=== PATIENT | female | born 1955 | race Caucasian/White ===

== ENCOUNTER 2019-02-09 19:11 | Observation (INO) ==
--- NOTE | 2019-02-09 19:20 | Emergency Department Note ---
Disposition Clinical Impression: Compression fracture of T10 vertebra, Intractable back pain Disposition: Admitted As Inpatient Condition: Good Time of Disposition: 00:00 Fall HPI - General Chief Complaint: ED Fall Stated Complaint: back injury Time Seen by Provider: 02/09/19 19:19 Source: patient Mode of arrival: ambulatory Limitations: no limitations Nursing Notes Reviewed: Yes Vital Signs Reviewed: Yes - History of Present Illness HPI Narrative: Patient is a 64 yo female with past medical history of chronic low back pain, gastric bypass, chronic nausea that she take Zofran for. She presents today due to a fall and thoracolumbar pain. Patient states that she take Zofran for c hronic nausea, she says that every time she takes his medication she gets lightheaded and dizzy. She states that she took this medication today around 1 PM. She felt dizzy when she is standing and fell flat on her back. She did hit her head but did not lose consciousness. She denies any neck pain. She admits to tobacco lumbar midline pain. Also admits to some mild epigastric pain. Denies any extremity injury. Denies any chest pain, shortness of breath. She does admit to dry heaving but states that this is chronic secondary to her gastric bypass. Denies any numbness, tingling, weakness. Is not on any blood thinners. - Related Data Home Medications Medication Instructions Recorded Confirmed Citalopram Hydrobromide 40 mg PO DAILY 11/10/18 02/10/19 [Citalopram HBr] Ergocalciferol (VITAMIN D2) 50,000 unit PO MO 11/10/18 02/10/19 [Vitamin D2] Esomeprazole Magnesium [Nexium] 40 mg PO DAILY 11/10/18 02/10/19 RX: Folic Acid 1 mg PO DAILY 11/10/18 02/10/19 RX: Ondansetron HCl 4 mg PO Q8H PRN 11/10/18 02/10/19 Acetaminophen [Tylenol] 1,000 mg PO HS PRN 02/10/19 02/10/19 DiphenhydraMINE [Benadryl] 25 mg PO HS 02/10/19 02/10/19 Previous Rx's Medication Instructions Recorded Lidocaine Patch [Lidoderm 5% patch] 1 each TP DAILY PRN #10 adh..patch 09/05/18 Allergies Allergy/AdvReac Type Severity Reaction Status Date / Time ibuprofen Allergy See Verified 11/10/18 08:26 Comments shellfish derived Allergy Rash Verified 11/10/18 08:26 All systems ED: reviewed and negative except as stated. Constitutional: Denies: fever Cardiovascular: Denies: chest pain Respiratory: Denies: dyspnea Gastrointestinal: Reports: abdominal pain, nausea. Denies: vomiting, diarrhea, constipation, melena, hematochezia Genitourinary: Denies: urgency, dysuria Musculoskeletal: Reports: back pain. Denies: neck pain Integumentary: Denies: rash Neurological: Denies: headache, weakness, numbness, paresthesias Fall PMH - Past Medical History Medical history: Reports: GERD, kidney stones Surgical history: Reports: non-contributory Psychiatric history: Reports: depression - Social History Smoking Status: Current every day smoker Alcohol use: Reports: occasionally Drug use: Reports: none Physical Exam - General Limitations: no limitations General appearance: alert, in no apparent distress - Head Head exam: atraumatic, normocephalic, normal inspection - Eye Eye exam: Present: normal appearance, PERRL, EOMI - ENT ENT exam: normal exam, normal oropharynx, mucous membranes moist - Neck Neck exam: Present: normal inspection, full ROM, trachea midline. Absent: tenderness (no midline cervical spine tenderness ) - Chest Chest inspection: Present: normal inspection, symmetric chest wall rise. Absent: tenderness - Respiratory Respiratory exam: Present: normal lung sounds bilaterally - Cardiovascular Cardiovascular exam: Present: regular rate, normal rhythm, normal heart sounds - Abdominal Exam Abdominal exam: Present: soft, tenderness (epigastric - moderate and radiates subjective pain to back). Absent: distention, rigidity - Extremities Exam Extremities exam: Present: normal inspection, full ROM. Absent: tenderness, pedal edema - Back Exam Back exam: Present: vertebral tenderness (T10-L2 midline tenderness with no obvious step-offs or deformities.). Absent: paraspinal tenderness - Neurological Exam Neurological exam: Present: alert, oriented X3, CN II-XII intact. Absent: motor sensory deficit - Expanded Neurological Exam Patient oriented to: Present: person, place, time Speech: Present: fluid speech Cranial nerves: EOM function (II, III, IV, ): Normal, facial sensation (V): Normal, facial palsy (VII): Normal, spinal accessory function (XI): Normal, tongue deviation (XII): Normal Motor strength - LUE: 5/5 Motor strength - RUE: 5/5 Motor strength - LLE: 5/5 Motor strength - RLE: 5/5 Sensory exam upper extremity: light touch: Normal Sensory exam lower extremity: light touch: Normal Coma Scale Eye Opening: Spontaneous Coma Scale Motor Response: Obeys Commands Coma Scale Verbal Response: Oriented Coma Scale Total: 15 - Psychiatric Psychiatric exam: Present: normal affect, normal mood - Skin Skin exam: Present: warm, dry, intact, normal color Course Course Narrative: Systolic blood pressure was in the 90s. 1 L normal saline bolus given. Otherwise, the rest of the vitals within normal limits. Physical exam showed midline thoracolumbar tenderness. Otherwise, no cervical spine tenderness, no focal neurologic deficits. No extremity injuries. Abdominal exam showed epigastric tenderness, moderate in nature. No bruising. No CVA tenderness. 23:19 CT thoracic spine shows mild T10 compression fracture. There is also questionable finding of C7 abnormality however on dedicated cervical spine CT there is no acute abdomen on the scene. Head CT negative. Patient has required multiple doses of pain medication while here in the ED. We have transitioned to Dilaudid at this time. We will admit the patient for intractable back pain, T10 compression fracture, age indeterminate T3 compression fracture, consult has be en placed to orthopedics/spine for further evaluation. Abdomen/Pelvis CTA 02/09/19 19:28 IMPRESSION: 1. Mild T10 compression fracture is new compared to 09/05/2018. Thoracic spine findings have been dictated separately. 2. No evidence for visceral injury. D/ / Lance Linares MD / Lance Linraes MD Interpreting Provider: Lance Linares MD Cervical Spine CT 02/09/19 19:28 IMPRESSION: No acute abnormality of the cervical spine. Slight reversal of the normal cervical lordosis may be secondary to positioning or muscle spasm. D/ / Landen Lane MD / Landen Lane MD Interpreting Provider: Landen Lane MD Head CT 02/09/19 19:28 IMPRESSION: No acute intracranial abnormality. D/ / Jacek Mosher MD / Jacek Mosher MD Interpreting Provider: Jacek Mosher MD Lumbar Spine CT 02/09/19 19:28 IMPRESSION: Acute compression fracture involving the superior endplate of T10. Questionable very subtle compression deformities of C7 and T3, age-indeterminate. D/ / Shiraz Ibrahim MD / Shiraz Ibrahim MD Interpreting Provider: Shiraz Ibrahim MD Thoracic Spine CT 02/09/19 19:28 IMPRESSION: Acute compression fracture involving the superior endplate of T10. Questionable very subtle compression deformities of C7 and T3, age-indeterminate. D/ / Shiraz Ibrahim MD / Shiraz Ibrahim MD Interpreting Provider: Shiraz Ibrahim MD Chest X-Ray 02/09/19 19:31 IMPRESSION: No acute cardiopulmonary disease. D/ / Landen Lane MD / Landen Lane MD Interpreting Provider: Landen Lane MD Vital Signs Temperature 97.5 F L 02/09/19 19:13 Pulse Rate 92 02/09/19 19:13 Respiratory Rate 18 02/09/19 19:13 Blood Pressure 94/69 02/09/19 19:13 O2 Sat by Pulse Oximetry 96 02/09/19 19:13 Temperature 97.5 F L 02/09/19 19:13 Pulse Rate 80 02/09/19 23:20 Respiratory Rate 16 02/09/19 23:20 Blood Pressure 165/101 02/09/19 23:20 O2 Sat by Pulse Oximetry 100 02/09/19 23:20 Oxygen Delivery Oxygen Delivery Room Air Fall - [facility] Narrative Medical decision making narrative: Systolic blood pressure was in the 90s. 1 L normal saline bolus given. Otherwise, the rest of the vitals within normal limits. Physical exam showed midline thoracolumbar tenderness. Otherwise, no cervical spine tenderness, no focal neurologic deficits. No extremity injuries. Abdominal exam showed epigastric tenderness, moderate in nature. No bruising. No CVA tenderness. 23:19 CT thoracic spine shows mild T10 compression fracture. There is also questionable finding of C7 abnormality however on dedicated cervical spine CT there is no acute abdomen on the scene. Head CT negative. Patient has required multiple doses of pain medication while here in the ED. We have transitioned to Dilaudid at this time. We will admit the patient for intractable back pain, T10 compression fracture, age indeterminate T3 compression fracture, consult has been placed to orthopedics/spine for further evaluation. - Medical Records Medical records reviewed: Yes I reviewed the patient's medical records. - Lab Data Lab results reviewed: Yes I reviewed the patient's lab results. Result diagrams: 02/09/19 20:49 02/09/19 20:49 Lab Results 02/09/19 02/09/19 Range/Units 20:49 20:49 WBC 8.0 (4.3-11.1) K/mcL RBC 3.15 L (3.82-4.97) M/mcL Hgb 10.9 L (11.5-15.4) g/dL Hct 31.7 L (35.3-44.9) % MCV 100.6 H (83.0-100.0) fL MCH 34.6 H (28.0-33.3) pg MCHC 34.4 (31.6-35.5) g/dL RDW 12.9 (11.5-14.5) % Plt Count 225 (140-400) K/mcL MPV 10.1 (9.4-12.4) fL Immature Gran % 0.5 (0-4) % Seg Neutrophils % 72.4 % Lymphocytes % 17.8 % Monocytes % 8.6 % Eosinophils % 0.3 % Basophils % 0.4 % Neutrophils # 5.8 (1.6-8.9) K/mcL Lymphocytes # 1.4 (0.6-4.6) K/mcL Monocytes # 0.7 (0.0-1.3) K/mcL Eosinophils # 0.0 (0.0-0.6) K/mcL Basophils # 0.0 (0.0-0.2) K/mcL Sodium 133 L (136-145) mEq/L Potassium 5.0 (3.5-5.1) mEq/L Chloride 104 (98-107) mEq/L Carbon Dioxide 22 L (23-29) mEq/L BUN 7 L (8-23) mg/dL Creatinine 0.54 L (0.60-1.20) mg/dL Est GFR ( Amer) > 60 (> 60) Est GFR (Non-Af Amer) > 60 (> 60) BUN/Creatinine Ratio 13 (6-26) Glucose 72 (70-105) mg/dL Calculated Osmolality 273 L (280-300) Calcium 8.0 L (8.6-10.3) mg/dL Total Bilirubin 0.4 (0.3-1.0) mg/dL Direct Bilirubin 0.1 (0.0-0.2) mg/dL Indirect Bilirubin 0.3 (0.0-1.2) mg/dL AST 19 (13-39) Units/L ALT 12 (7-52) Units/L Alkaline Phosphatase 65 (34-104) Units/L Troponin I < 0.03 (< 0.04) ng/mL Serum Total Protein 5.0 L (6.4-8.9) g/dL Albumin 2.8 L (3.5-5.7) g/dL Globulin 2.2 L (2.4-3.5) g/dL Albumin/Globulin Ratio 1.3 (1.1-2.2) Lipase 11 (11-82) Units/L - Radiology Data Radiology results reviewed: Yes I reviewed the patient's radiology results. Abdomen/Pelvis CTA 02/09/19 19:28 IMPRESSION: 1. Mild T10 compression fracture is new compared to 09/05/2018. Thoracic spine findings have been dictated separately. 2. No evidence for visceral injury. D/ / Lance Linares MD / Lance Linares MD Interpreting Provider: Lance Linares MD Cervical Spine CT 02/09/19 19:28 IMPRESSION: No acute abnormality of the cervical spine. Slight reversal of the normal cervical lordosis may be secondary to positioning or muscle spasm. D/ / Landen Lane MD / Landen Lane MD Interpreting Provider: Landen Lane MD Head CT 02/09/19 19:28 IMPRESSION: No acute intracranial abnormality. D/ / Jacek Mosher MD / Jacek Mosher MD Interpreting Provider: Jacek Mosher MD Lumbar Spine CT 02/09/19 19:28 IMPRESSION: Acute compression fracture involving the superior endplate of T10. Questionable very subtle compression deformities of C7 and T3, age-indeterminate. D/ / Shiraz Ibrahim MD / Shiraz Ibrahim MD Interpreting Provider: Shiraz Ibrahim MD Thoracic Spine CT 02/09/19 19:28 IMPRESSION: Acute compression fracture involving the superior endplate of T10. Questionable very subtle compression deformities of C7 and T3, age-indeterminate. D/ / Shiraz Ibrahim MD / Shiraz Ibrahim MD Interpreting Provider: Shiraz Ibrahim MD Chest X-Ray 02/09/19 19:31 IMPRESSION: No acute cardiopulmonary disease. D/ / Landen Lane MD / Landen Lane MD Interpreting Provider: Landen Lane MD [facility] Situation: Demographics, MOA Background: Presenting Complaint, Relevant PMH, Meds, & Allergies Assessment: Vital Signs, Course and respsone to treatment, Exam Concerns, Patient/Family Expectation, Pertinant Lab Results Recommendation: Barrier(s) to disposition, Recommendation based on pending studies, treatments, or consults Bia Report Given to: Dr. Lisandro Amezquita Repor Time: 00:00 Attestation Statement - Attestation Attestation: Resident Attestation: I examined this patient and my medical decision making was reviewed with the Resident Physician. I agree with the documented findings, disposition and treatment plan as described except to the extent set forth below. We independently had [id number] contact with the patient. Patient presents today for evaluation after fall. Patient with significant back pain. Patient preferring to lay flat on my evaluation. Patient has tenderness throughout the mid Saleem lumbar spine. Pain midline as well as paraspinal in nature. Patient neurovascularly intact throughout the upper lower extremities. Patient with no numbness or tingling in the groin. Patient has not had any urinary incontinence. Patient will undergo further trauma evaluation. CT scan concerning for compression fractures. Patient be admitted for pain control as well as specialty consultation.
[2019-02-09] MEDS ORDERED: Isovue-370 500 ML BOTTLE IVP ONE (19:28)
[2019-02-09] MEDS ORDERED: *HR* FentaNYL (PF) 100 MCG/2 ML VIAL IVP ONE (19:28)
[2019-02-09] MEDS ORDERED: 0.9 % Sodium Chloride 1,000 ML IVC ONE (19:30)
[2019-02-09] MEDS ORDERED: *HR* HYDROmorphone (PF) 1 MG/ML SYRINGE IVP ONE ×2 (20:51→22:54)
[2019-02-09 21:13] LABS: Red Blood Count 3.15 M/mcL (3.82-4.97)
[2019-02-09 21:14] LABS: Basophils % 0.4 %; Eosinophils % 0.3 %; Hematocrit 31.7 % (35.3-44.9); Hemoglobin 10.9 g/dL (11.5-15.4); Immature Granulocytes % 0.5 % (0-4); Lymphocytes # 1.4 K/mcL (0.6-4.6); Lymphocytes % 17.8 %; Mean Corpuscular HGB Conc 34.4 g/dL (31.6-35.5); Mean Corpuscular Hemoglobin 34.6 pg (28.0-33.3); Mean Corpuscular Volume 100.6 fL (83.0-100.0); Mean Platelet Volume 10.1 fL (9.4-12.4); Monocytes # 0.7 K/mcL (0.0-1.3); Monocytes % 8.6 %; Neutrophils # 5.8 K/mcL (1.6-8.9); Platelet Count 225 K/mcL (140-400); Red Cell Distribution Width 12.9 % (11.5-14.5); Segmented Neutrophils % 72.4 %
[2019-02-09 21:34] LABS: Alanine Aminotransferase 12 Units/L (7-52); Albumin 2.8 g/dL (3.5-5.7); Albumin/Globulin Ratio 1.3 (1.1-2.2); Alkaline Phosphatase 65 Units/L (34-104); Aspartate Amino Transferase 19 Units/L (13-39); BUN/Creatinine Ratio 13 (6-26); Bilirubin,Direct 0.1 mg/dL (0.0-0.2); Bilirubin,Indirect 0.3 mg/dL (0.0-1.2); Bilirubin,Total 0.4 mg/dL (0.3-1.0); Blood Urea Nitrogen 7 mg/dL (8-23); Carbon Dioxide 22 mEq/L (23-29); Chloride 104 mEq/L (98-107); Globulin 2.2 g/dL (2.4-3.5); Glucose 72 mg/dL (70-105); Lipase 11 Units/L (11-82); Osmolality,Calculated 273 (280-300); Sodium 133 mEq/L (136-145); Troponin I < 0.03 ng/mL (< 0.04); eGFR For Non-African Americans > 60 (> 60)
--- NOTE | 2019-02-10 01:09 | Internal Med History&Physical ---
Date of Encounter: 02/10/19 Time of Encounter: 01:06 Internal Medicine - H&P: HPI Chief complaint: back pain Admitted From: Home Plans for Post Hospital Care: Home History of present illness: Moira Vaughn is a 64-year-old woman with a history of gastric bypass complicated by chronic nausea for which she is on ondansetron. She also has chronic lumbago. She presented to the ER with the complaint of thoracolumbar pain after a fall. She states that when she takes her anti-emetic she becomes dizzy for a short period of time however on this occasion she fell flat on her back. She hit her head but did not lose consciousness. No nuchal pain just thoracolumbar. No external evidence of injury noted. No paresthesias or focal weaknesses. Not on anticoagulants. Extensive radiographic imaging was done and revealing of a mild T10 compression fracture. Due to the severity of her pain and requiring multiple doses of narcotics, she is admitted for observation of intractable pain. Past Med Surg Social Fam HX - Past Medical History Medical history: GERD, kidney stones Psychiatric history: depression - Past Surgical History Surgical History: non-contributory Additional surgical history: toe amputation, gastric bypass - Social History Smoking Status: Current every day smoker Smokeless Tobacco Status: No Alcohol use: occasionally Drug use: none - Family History Brother Hx Family Cardiac Disorders: Yes (heart disease) Mother Hx Family Cardiac Disorders: Yes (heart disease, open heart) Internal Medicine - H&P: Meds Lidocaine Patch [Lidoderm 5% patch] 1 each TP DAILY PRN #10 adh..patch 09/05/18 [Rx] Citalopram Hydrobromide [Citalopram HBr] 40 mg PO DAILY 11/10/18 [History] Ergocalciferol (VITAMIN D2) [Vitamin D2] 50,000 unit PO MO 11/10/18 [History] Esomeprazole Magnesium [Nexium] 40 mg PO DAILY 11/10/18 [History] Folic Acid 1 mg PO DAILY 11/10/18 [History] Ondansetron HCl 4 mg PO Q8H PRN 11/10/18 [History] Acetaminophen [Tylenol] 1,000 mg PO HS PRN 02/10/19 [History] DiphenhydraMINE [Benadryl] 25 mg PO HS 02/10/19 [History] Allergy/AdvReac Type Severity Reaction Status Date / Time ibuprofen Allergy See Verified 11/10/18 08:26 Comments shellfish derived Allergy Rash Verified 11/10/18 08:26 All Systems PM: A 10-system review of systems was performed and is negative for pertinent findings except as documented above in the HPI. Family history reviewed and found non-contributory. - Constitutional Vitals: Temp Pulse Resp BP Pulse Ox 98.1 F 79 17 155/97 95 02/10/19 00:59 02/10/19 00:59 02/10/19 00:59 02/10/19 00:59 02/10/19 00:59 Exam: Vitals: Reviewed General: Well-appearing woman lying in bed in no acute distress. Skin: Warm and supple. HEENT: Moist mucous membranes. No conjunctivae pallor. Neck: No lymphadenopathy. No JVD. No carotid bruits. No palpable thyroid. Chest: Normal thoracic expansion. Normal breath sounds. Clear to auscultation. Heart: Normal S1 & S2; rhythmic. No rubs or murmurs. Abdomen: Non-distended, soft and non-tender to palpation. No peritoneal reaction. Extremities: No clubbing, cyanosis or edema. No calf tenderness. Normal distal pulses. MSK: Point tenderness on palpation of her paraspinal muscles and thoracic spinous processes. Neurological: Awake, alert and oriented to person, place and time. No focal deficits. Psych: Affect appropriate. Internal Med - H&P Results - Labs CBC & Chem 7: 02/09/19 20:49 02/09/19 20:49 Labs: Short CBC 02/09/19 Range/Units 20:49 WBC 8.0 (4.3-11.1) K/mcL Hgb 10.9 L (11.5-15.4) g/dL Hct 31.7 L (35.3-44.9) % Plt Count 225 (140-400) K/mcL Neutrophils # 5.8 (1.6-8.9) K/mcL BMP 02/09/19 20:49 Sodium 133 L Potassium 5.0 Chloride 104 Carbon Dioxide 22 L BUN 7 L Creatinine 0.54 L Glucose 72 Calcium 8.0 L Cardiac Enzymes 02/09/19 Range/Units 20:49 Troponin I < 0.03 (< 0.04) ng/mL Liver Function 02/09/19 Range/Units 20:49 Total Bilirubin 0.4 (0.3-1.0) mg/dL Direct Bilirubin 0.1 (0.0-0.2) mg/dL AST 19 (13-39) Units/L ALT 12 (7-52) Units/L Alkaline Phosphatase 65 (34-104) Units/L Albumin 2.8 L (3.5-5.7) g/dL - Impressions ITS Impressions Abdomen/Pelvis CTA 02/09/19 19:28 IMPRESSION: 1. Mild T10 compression fracture is new compared to 09/05/2018. Thoracic spine findings have been dictated separately. 2. No evidence for visceral injury. D/ / Lance Linares MD / Lance Linares MD Interpreting Provider: Lance Linares MD Cervical Spine CT 02/09/19 19:28 IMPRESSION: No acute abnormality of the cervical spine. Slight reversal of the normal cervical lordosis may be secondary to positioning or muscle spasm. D/ / Landen Lane MD / Landen Lane MD Interpreting Provider: Landen Lane MD Head CT 02/09/19 19:28 IMPRESSION: No acute intracranial abnormality. D/ / Jacek Mosher MD / Jacek Mosher MD Interpreting Provider: Jacek Mosher MD Lumbar Spine CT 02/09/19 19:28 IMPRESSION: Acute compression fracture involving the superior endplate of T10. Questionable very subtle compression deformities of C7 and T3, age-indeterminate. D/ / Shiraz Ibrahim MD / Shiraz Ibrahim MD Interpreting Provider: Shiraz Ibrahim MD Thoracic Spine CT 02/09/19 19:28 IMPRESSION: Acute compression fracture involving the superior endplate of T10. Questionable very subtle compression deformities of C7 and T3, age-indeterminate. D/ / Shiraz Ibrahim MD / Shiraz Ibrahim MD Interpreting Provider: Shiraz Ibrahim MD Chest X-Ray 02/09/19 19:31 IMPRESSION: No acute cardiopulmonary disease. D/ / Landen Lane MD / Landen Lane MD Interpreting Provider: Landen Lane MD - Assessment and Plan (1) Intractable back pain Current Visit: Yes Status: Acute Assessment and plan: Will admit for observation. Pain management protocol will be instituted. Will require outpatient follow up. (2) Compression fracture of T10 vertebra Current Visit: Yes Status: Acute Assessment and plan: Orthopedics/Spine surgery has been consulted from the ER for evaluation. Conservative management anticipated. (3) Chronic nausea Current Visit: Yes Status: Acute Assessment and plan: Will provide anti-emetics as needed. - Time Spent With Patient Total time spent is greater than 50% in coordination of care (as documented) at patient's floor/unit and/or counseling patient: Greater than 35 minutes
[2019-02-10] MEDS ORDERED: Ondansetron ODT 4 MG TAB.RAPDIS SL PRN (01:43)
[2019-02-10] MEDS ORDERED: Naloxone 0.4 MG/ML INJ IVP PRN (01:43)
[2019-02-10] MEDS ORDERED: Acetaminophen 325 MG TABLET PO PRN (01:43)
[2019-02-10] MEDS: Ketorolac 30 MG/ML VIAL IVP PRN ×3 (02:10→17:44)
[2019-02-10] MEDS: Nicotine 14 MG PATCH.TD24 TD SCH ×2 (05:57→17:50)
[2019-02-10] MEDS: *HR* Heparin 5,000 UNIT/ML VIAL SQ SCH ×2 (05:57→17:41)
[2019-02-10] MEDS: *HR* OxyCODONE Immed Rel 5 MG TABLET PO PRN ×3 (08:23→21:46)
[2019-02-10] MEDS: Folic Acid 1 MG TABLET PO SCH (08:23)
--- NOTE | 2019-02-10 10:28 | Internal Med Progress Note ---
<Obed Green - Last Filed: 02/10/19 15:49> Hospitalist Progress Note - Encounter Date of Encounter: 02/10/19 - Exam Vitals: Temp Pulse Resp BP Pulse Ox 98.3 F 78 16 167/104 98 02/10/19 09:58 02/10/19 09:58 02/10/19 09:58 02/10/19 09:58 02/10/19 09:58 - Assessment and Plan (1) Compression fracture of T10 vertebra Current Visit: Yes Status: Acute (2) Intractable back pain Current Visit: Yes Status: Acute (3) Chronic nausea Current Visit: Yes Status: Acute - Time Spent with Patient Total time spent is greater than 50% in coordination of care (as documented) at patient's floor/unit and/or counseling patient: Internal Medicine: Result - Labs CBC & Chem 7: 02/09/19 20:49 02/09/19 20:49 Labs: Short CBC 02/09/19 Range/Units 20:49 WBC 8.0 (4.3-11.1) K/mcL Hgb 10.9 L (11.5-15.4) g/dL Hct 31.7 L (35.3-44.9) % Plt Count 225 (140-400) K/mcL Neutrophils # 5.8 (1.6-8.9) K/mcL BMP 02/09/19 20:49 Sodium 133 L Potassium 5.0 Chloride 104 Carbon Dioxide 22 L BUN 7 L Creatinine 0.54 L Glucose 72 Calcium 8.0 L Cardiac Enzymes 02/09/19 Range/Units 20:49 Troponin I < 0.03 (< 0.04) ng/mL Liver Function 02/09/19 Range/Units 20:49 Total Bilirubin 0.4 (0.3-1.0) mg/dL Direct Bilirubin 0.1 (0.0-0.2) mg/dL AST 19 (13-39) Units/L ALT 12 (7-52) Units/L Alkaline Phosphatase 65 (34-104) Units/L Albumin 2.8 L (3.5-5.7) g/dL - Impressions Impressions Abdomen/Pelvis CTA 02/09/19 19:28 IMPRESSION: 1. Mild T10 compression fracture is new compared to 09/05/2018. Thoracic spine findings have been dictated separately. 2. No evidence for visceral injury. D/ / Lance Linares MD / Lance Linares MD Interpreting Provider: Lance Linares MD Cervical Spine CT 02/09/19 19:28 IMPRESSION: No acute abnormality of the cervical spine. Slight reversal of the normal cervical lordosis may be secondary to positioning or muscle spasm. D/ / Landen Lane MD / Landen Lane MD Interpreting Provider: Landen Lane MD Head CT 02/09/19 19:28 IMPRESSION: No acute intracranial abnormality. D/ / Jacek Mosher MD / Jacek Mosher MD Interpreting Provider: Jacek Mosher MD Lumbar Spine CT 02/09/19 19:28 IMPRESSION: Acute compression fracture involving the superior endplate of T10. Questionable very subtle compression deformities of C7 and T3, age-indeterminate. D/ / Shiraz Ibrahim MD / Shiraz Ibrahim MD Interpreting Provider: Shiraz Ibrahim MD Thoracic Spine CT 02/09/19 19:28 IMPRESSION: Acute compression fracture involving the superior endplate of T10. Questionable very subtle compression deformities of C7 and T3, age-indeterminate. D/ / Shiraz Ibrahim MD / Shiraz Ibrahim MD Interpreting Provider: Shiraz Ibrahim MD Chest X-Ray 02/09/19 19:31 IMPRESSION: No acute cardiopulmonary disease. D/ / Landen Lane MD / Landen Lane MD Interpreting Provider: Landen Lane MD Consult Discharge Plan - Plan Referrals: Emanuel Dietrich DO [Primary Care Provider] - - Attending Attestation The history, physical exam, and medical decision making was performed by the medical student either while I was physically present and actively involved or I personally re-performed the exam and medical decision making. I have verified the accuracy of the medical student's documentation with regards to the history, physical exam findings, and medical decision making on 02/10/19. Pt admitted earlier today for acute thoracic compression fracture. She is doing OK at this time. Exam alert Comfortable at this time Heart reg No wheeze abd soft Agree with assessment and plan as above and in H&P <Agata Herrera - Last Filed: 02/10/19 17:10> Hospitalist Progress Note - Encounter Date of Encounter: 02/10/19 Time of Encounter: 09:30 - Subjective Interval History: Mrs. Vaughn is a 64 Yo F with a h/o gastric bypass surgery complicated by chronic nausea, for which she takes zofran, who presented for thoracolumbar pain 2/2 fall caused by dizziness after taking zofran. Pt states she normally feels dizzy after taking the medication. Today pt states she is doing well. She denies chest pain, dyspnea, numbness/tingling, or weakness. She does admit to mid to lower thoracic back pain that worsens when she inhales deeply or bends forward. Pt admits to nausea that is no different from her baseline. - Exam Vitals: Temp Pulse Resp BP Pulse Ox 98.3 F 78 16 167/104 98 02/10/19 09:58 02/10/19 09:58 02/10/19 09:58 02/10/19 09:58 02/10/19 09:58 Exam: General: AAOX3, NAD, pleasant Cardiovascular: RRR, normal s1 and s2, no murmurs, no JVD Respiratory: CTAB, no wheezing, no rhonchi Abdomen: normal bowel sounds X4, soft, non-tender, non-distended, no tenderness to palpation MSK: point tenderness around and on the spinous process of T10, paraspinal tenderness bilaterally from T4-T10 Neuro: 5/5 strength and normal sensation to light touch of UE b/l - Assessment and Plan (1) Compression fracture of T10 vertebra Current Visit: Yes Status: Acute Assessment and Plan: Pt fell backwards onto bottom/back Pt has h/o lumbar spondylosis and chronic lumbago 02/09 thoracic/lumbar spine CT showed acute compression fx involving superior endplate of T10 and Questionable/subtle compression deformities of C7 and T3, age-indeterminate. 02/[address] No acute abnormality of the cervical spine. Slight reversal of the normal cervical lordosis may be secondary to positioning or muscle spasm. 02/09 Abd/Pelvis CTA Mild T10 compression fracture is new compared to 09/05/2018. No evidence for visceral injury. Plan: -ortho is following -MRI w/o contrast of cervical and thoracic spine pending -continue lidocaine patch, toradol, and roxicodone for pain (2) Intractable back pain Current Visit: Yes Status: Acute Assessment and Plan: Pt has h/o lumbar spondylosis and chronic lumabgo and now new T10 compression fx 02/09 thoracic/lumbar spine CT showed acute compression fx involving superior endplate of T10 and Questionable/subtle compression deformities of C7 and T3, age-indeterminate. 02/[address] No acute abnormality of the cervical spine. Slight reversal of the normal cervical lordosis may be secondary to positioning or muscle spasm. Plan: -ortho is consulted -continue lidocaine patch, toradol, and roxicodone for pain -f/u outpatient (3) Chronic nausea Current Visit: Yes Status: Acute Assessment and Plan: Pt has a h/o gastric bypass surgery that was complicated by chronic nausea. She takes zofran at home for her nausea. Pt admits to nausea this AM but states it is no different than her normal baseline. nausea could also be complicated by current pain medications Plan: -continue zofran q4hr PRN (4) DVT prophylaxis Current Visit: Yes Status: Acute Assessment and Plan: Plan: -on heparin SQ - Time Spent with Patient Total time spent is greater than 50% in coordination of care (as documented) at patient's floor/unit and/or counseling patient: Internal Medicine: Result - Labs CBC & Chem 7: 02/09/19 20:49 02/09/19 20:49 Labs: Short CBC 02/09/19 Range/Units 20:49 WBC 8.0 (4.3-11.1) K/mcL Hgb 10.9 L (11.5-15.4) g/dL Hct 31.7 L (35.3-44.9) % Plt Count 225 (140-400) K/mcL Neutrophils # 5.8 (1.6-8.9) K/mcL BMP 02/09/19 20:49 Sodium 133 L Potassium 5.0 Chloride 104 Carbon Dioxide 22 L BUN 7 L Creatinine 0.54 L Glucose 72 Calcium 8.0 L Cardiac Enzymes 02/09/19 Range/Units 20:49 Troponin I < 0.03 (< 0.04) ng/mL Liver Function 02/09/19 Range/Units 20:49 Total Bilirubin 0.4 (0.3-1.0) mg/dL Direct Bilirubin 0.1 (0.0-0.2) mg/dL AST 19 (13-39) Units/L ALT 12 (7-52) Units/L Alkaline Phosphatase 65 (34-104) Units/L Albumin 2.8 L (3.5-5.7) g/dL - Impressions Impressions Abdomen/Pelvis CTA 02/09/19 19:28 IMPRESSION: 1. Mild T10 compression fracture is new compared to 09/05/2018. Thoracic spine findings have been dictated separately. 2. No evidence for visceral injury. D/ / Lance Linares MD / Lance Linares MD Interpreting Provider: Lance Linares MD Cervical Spine CT 02/09/19 19:28 IMPRESSION: No acute abnormality of the cervical spine. Slight reversal of the normal cervical lordosis may be secondary to positioning or muscle spasm. D/ / Landen Lane MD / Landen Lane MD Interpreting Provider: Landen Lane MD Head CT 02/09/19 19:28 IMPRESSION: No acute intracranial abnormality. D/ / Jacek Mosher MD / Jacek Mosher MD Interpreting Provider: Jacek Mosher MD Lumbar Spine CT 02/09/19 19:28 IMPRESSION: Acute compression fracture involving the superior endplate of T10. Questionable very subtle compression deformities of C7 and T3, age-indeterminate. D/ / Shiraz Ibrahim MD / Shiraz Ibrahim MD Interpreting Provider: Shiraz Ibrahim MD Thoracic Spine CT 02/09/19 19:28 IMPRESSION: Acute compression fracture involving the superior endplate of T10. Questionable very subtle compression deformities of C7 and T3, age-indeterminate. D/ / Shiraz Ibrahim MD / Shiraz Ibrahim MD Interpreting Provider: Shiraz Ibrahim MD Chest X-Ray 02/09/19 19:31
--- NOTE | 2019-02-10 16:03 | Pain Management History & Phys ---
Date of Encounter: 02/10/19 Time of Encounter: 15:53 Assessment and Plan (1) Compression fracture of T10 vertebra Current Visit: Yes Status: Acute The assessment and plan as outlined above was discussed with the patient and/or family members who expressed understanding and agreement. All questions were answered. I recommend the following for this patient: For her history of gait instability I recommended neurological consultation is now patient For her history of thoracic compression fracture, I do not believe this is a candidate for kyphoplasty. However she would benefit from a thoracic/lumbosacral orthotic and I have ordered this. The patient should again physical therapy as an outpatient in follow-up in the [facility]. I remove recommend analgesics to help with the pain such as a light opioid and in combination with a nonsteroidal anti-inflammatory. History of Present Illness Chief complaint: back pain, fall HPI: Ms. Vaughn is a 64 year old female Became wobbly in her legs and demonstrated instability and fell in front of her . The patient fell on her backside of back and suffered back pain. The patient was brought into the emergency room on 02/09/2019. The patient demonstrated no neurological deficit. The patient was complaining of no leg pain but predominant low back pain with getting up out of bed. She has had needed help to get up from a seated position. At home she uses a walker assist device to help her with her balance and stability. She intermittently has trouble with "wobbly legs." And, since this is been going on for a few years she has not seen a neurologist to help her sort this out. The pain is reasonable while laying in bed but when she tries to move its fairly significant. When she gets up to a walking position she is able to ambulate with minimal pain. She appears to be maintaining ADLs here in the hospital. She does not need help to the bathroom more than she needs already existing at home. She seems to be reporting a baseline state from a pain standpoint, and the patient desires to go home today. Past Med Surg Social Fam HX - Past Medical History Medical history: GERD, kidney stones Psychiatric history: depression - Past Surgical History Surgical History: non-contributory Additional surgical history: toe amputation, gastric bypass - Social History Smoking Status: Current every day smoker Packs per day: 1 Smokeless Tobacco Status: No Alcohol use: occasionally Drug use: none - Family History Brother Hx Family Cardiac Disorders: Yes (heart disease) Mother Hx Family Cardiac Disorders: Yes (heart disease, open heart) Medications and Allergies Lidocaine Patch [Lidoderm 5% patch] 1 each TP DAILY PRN #10 adh..patch 09/05/18 [Rx] Citalopram Hydrobromide [Citalopram HBr] 40 mg PO DAILY 11/10/18 [History] Ergocalciferol (VITAMIN D2) [Vitamin D2] 50,000 unit PO MO 11/10/18 [History] Esomeprazole Magnesium [Nexium] 40 mg PO DAILY 11/10/18 [History] Folic Acid 1 mg PO DAILY 11/10/18 [History] Ondansetron HCl 4 mg PO Q8H PRN 11/10/18 [History] Acetaminophen [Tylenol] 1,000 mg PO HS PRN 02/10/19 [History] DiphenhydraMINE [Benadryl] 25 mg PO HS 02/10/19 [History] Allergy/AdvReac Type Severity Reaction Status Date / Time ibuprofen Allergy See Verified 11/10/18 08:26 Comments shellfish derived Allergy Rash Verified 11/10/18 08:26 Review of Systems - Constitutional Constitutional ROS IM: as per HPI - Cardiovascular Cardiovascular ROS: no chest pain, no leg edema, no lightheadedness - Respiratory Respiratory: no pain on inspiration, no pain with cough - Gastrointestinal Gastrointestinal: no abdominal pain, no constipation, no diarrhea, no heartburn - Musculoskeletal Musculoskeletal ROS: as per HPI, abnormal gait - Integumentary Integumentary: no erythema, no lesions, no swelling - Psychiatric Psychiatric general: no anxiety, no confusion, no depression - Hematologic/Lymphatic Hematologic/Lymphatic pediatric: no easy bleeding, no easy bruising Physical Exam Initial Vital Signs Temp Pulse Resp BP Pulse Ox 97.5 F L 92 18 94/69 96 02/09/19 19:13 02/09/19 19:13 02/09/19 19:13 02/09/19 19:13 02/09/19 19:13 - General physical appearance General physical appearance: awake & oriented - Respiratory normal respiratory effort - Cardiovascular Cardiovascular exam: Present: RRR - Neurologic normal coordination, normal sensation - Musculoskeletal Musculoskeletal: kyphosis, point tenderness over spinal process - Psychiatric Psychiatric: oriented to time, oriented to person, oriented to place Results - Labs 02/09/19 20:49 02/09/19 20:49 Abnormal lab results RBC 3.15 M/mcL (3.82-4.97) L 02/09/19 20:49 Hgb 10.9 g/dL (11.5-15.4) L 02/09/19 20:49 Hct 31.7 % (35.3-44.9) L 02/09/19 20:49 MCV 100.6 fL (83.0-100.0) H 02/09/19 20:49 MCH 34.6 pg (28.0-33.3) H 02/09/19 20:49 Sodium 133 mEq/L (136-145) L 02/09/19 20:49 Carbon Dioxide 22 mEq/L (23-29) L 02/09/19 20:49 BUN 7 mg/dL (8-23) L 02/09/19 20:49 Creatinine 0.54 mg/dL (0.60-1.20) L 02/09/19 20:49 Calculated Osmolality 273 (280-300) L 02/09/19 20:49 Calcium 8.0 mg/dL (8.6-10.3) L 02/09/19 20:49 Serum Total Protein 5.0 g/dL (6.4-8.9) L 02/09/19 20:49 Albumin 2.8 g/dL (3.5-5.7) L 02/09/19 20:49 Globulin 2.2 g/dL (2.4-3.5) L 02/09/19 20:49 Diabetes panel 02/09/19 Range/Units 20:49 Sodium 133 L (136-145) mEq/L Potassium 5.0 (3.5-5.1) mEq/L Chloride 104 (98-107) mEq/L Carbon Dioxide 22 L (23-29) mEq/L BUN 7 L (8-23) mg/dL Creatinine 0.54 L (0.60-1.20) mg/dL Glucose 72 (70-105) mg/dL Calcium 8.0 L (8.6-10.3) mg/dL AST 19 (13-39) Units/L ALT 12 (7-52) Units/L Alkaline Phosphatase 65 (34-104) Units/L Albumin 2.8 L (3.5-5.7) g/dL Calcium panel 02/09/19 Range/Units 20:49 Calcium 8.0 L (8.6-10.3) mg/dL Albumin 2.8 L (3.5-5.7) g/dL Pituitary panel 02/09/19 Range/Units 20:49 Sodium 133 L (136-145) mEq/L Potassium 5.0 (3.5-5.1) mEq/L Chloride 104 (98-107) mEq/L Carbon Dioxide 22 L (23-29) mEq/L BUN 7 L (8-23) mg/dL Creatinine 0.54 L (0.60-1.20) mg/dL Glucose 72 (70-105) mg/dL Calcium 8.0 L (8.6-10.3) mg/dL Adrenal panel 02/09/19 Range/Units 20:49 Sodium 133 L (136-145) mEq/L Potassium 5.0 (3.5-5.1) mEq/L Chloride 104 (98-107) mEq/L Carbon Dioxide 22 L (23-29) mEq/L BUN 7 L (8-23) mg/dL Creatinine 0.54 L (0.60-1.20) mg/dL Glucose 72 (70-105) mg/dL Calcium 8.0 L (8.6-10.3) mg/dL Total Bilirubin 0.4 (0.3-1.0) mg/dL AST 19 (13-39) Units/L ALT 12 (7-52) Units/L Alkaline Phosphatase 65 (34-104) Units/L Albumin 2.8 L (3.5-5.7) g/dL All other labs normal. - Imaging Additional studies: I reviewed the CT scan from the thoracic and lumbar spine demonstrating a mild fracture at T10. There is generalized spondylosis throughout the lumbar spine
[2019-02-11] MEDS: Ketorolac 30 MG/ML VIAL IVP PRN ×3 (00:26→13:12)
[2019-02-11] MEDS: *HR* OxyCODONE Immed Rel 5 MG TABLET PO PRN ×2 (04:52→11:11)
[2019-02-11 06:07] LABS: Basophils % 0.2 %; Eosinophils # 0.1 K/mcL (0.0-0.6); Eosinophils % 1.7 %; Hematocrit 30.8 % (35.3-44.9); Hemoglobin 10.4 g/dL (11.5-15.4); Immature Granulocytes % 0.2 % (0-4); Lymphocytes # 1.6 K/mcL (0.6-4.6); Lymphocytes % 38.6 %; Mean Corpuscular HGB Conc 33.8 g/dL (31.6-35.5); Mean Corpuscular Hemoglobin 34.1 pg (28.0-33.3); Mean Platelet Volume 10.3 fL (9.4-12.4); Monocytes # 0.4 K/mcL (0.0-1.3); Monocytes % 10.9 %; Platelet Count 179 K/mcL (140-400); Red Blood Count 3.05 M/mcL (3.82-4.97); Red Cell Distribution Width 12.5 % (11.5-14.5); Segmented Neutrophils % 48.4 %
[2019-02-11] MEDS: *HR* Heparin 5,000 UNIT/ML VIAL SQ SCH (07:14)
[2019-02-11] MEDS: Folic Acid 1 MG TABLET PO SCH (08:37)
[2019-02-11] MEDS: Nicotine 14 MG PATCH.TD24 TD SCH (08:37)
--- NOTE | 2019-02-11 09:47 | Neurology - Consult Note ---
Date of Encounter: 02/11/19 Time of Encounter: 09:42 Assessment and Plan (1) Falls Current Visit: Yes Status: Acute Patient has intermittent falls related to dizziness/lightheadedness. I saw no typical neurological entities that can cause gait difficulty, such as myelopathy or Parkinsons disease. Per history, it seems that the falls were related direct ly to the spells of lightheadedness. She has non focal neurological examination today and walks without assistance, her DTRs are brisk but i saw no evidence of ankle clonus. Would like to work up for chronic light headedness as an outpatient. Would like to see her in 2-3 weeks after discharge. Okay to discharge from neurology perspective. Qualifiers: Encounter type: initial encounter Qualified Code(s): W19.XXXA - Unspecified fall, initial encounter History of Present Illness Chief complaint: dizziness and falls HPI: Ms. Vaughn is a 64 year old female with PMH significant for s/p gastric bypass surgery, tobacco dependence, HTN, psoriasis, chronic lumbar pain who presented with severe back pain after a fall. Neurology was consulted due to complaints of intermittent falling and gait disturbances. This has been going on for few years. Patient states that ever after she had gastric bypass surgery she has lost weight and has been experiencing stomach upset and had to take ondansetron for nausea. At times after she takes the nausea medication she would developed spells of light headedness, lasting usually less than few minutes in duration. She denies vertigo but lightheadedness and she has no tinnitus and no hearing difficulty. When dizziness occurs she would have to grab something or to sit down otherwise she would fall backwards. If she does not have dizziness she walks fine. She completed MRI of thoracic spine and no spinal cord pathology identified. Her mental status is intact. Past Med Surg Social Fam HX - Past Medical History Medical history: GERD, kidney stones Psychiatric history: depression - Past Surgical History Surgical History: non-contributory Additional surgical history: toe amputation, gastric bypass - Social History Smoking Status: Current every day smoker Packs per day: 1 Smokeless Tobacco Status: No Alcohol use: occasionally Drug use: none - Family History Brother Hx Family Cardiac Disorders: Yes (heart disease) Mother Hx Family Cardiac Disorders: Yes (heart disease, open heart) Medications and Allergies Lidocaine Patch [Lidoderm 5% patch] 1 each TP DAILY PRN #10 adh..patch 09/05/18 [Rx] Citalopram Hydrobromide [Citalopram HBr] 40 mg PO DAILY 11/10/18 [History] Ergocalciferol (VITAMIN D2) [Vitamin D2] 50,000 unit PO MO 11/10/18 [History] Esomeprazole Magnesium [Nexium] 40 mg PO DAILY 11/10/18 [History] Folic Acid 1 mg PO DAILY 11/10/18 [History] Ondansetron HCl 4 mg PO Q8H PRN 11/10/18 [History] Acetaminophen [Tylenol] 1,000 mg PO HS PRN 02/10/19 [History] DiphenhydraMINE [Benadryl] 25 mg PO HS 02/10/19 [History] Allergy/AdvReac Type Severity Reaction Status Date / Time ibuprofen Allergy See Verified 11/10/18 08:26 Comments shellfish derived Allergy Rash Verified 11/10/18 08:26 All Systems: The remainder of the systems were reviewed and are negative Physical Examination - Vital Signs Vital Signs: Initial Vital Signs Temp Pulse Resp BP Pulse Ox 97.5 F L 92 18 94/69 96 02/09/19 19:13 02/09/19 19:13 02/09/19 19:13 02/09/19 19:13 02/09/19 19:13 - Constitutional General appearance: comfortable - Neurologic Sensorimotor examination: intact Detailed motor examination: full strength in all major muscle groups Motor examination - right side: 5/5: deltoids, biceps, triceps, wrist flexion, wrist extension, pig farm manager, hip flexors, tibialis Anterior, quadriceps, toe extension (EHL), plantarflexion Motor examination - left side: 5/5: deltoids, biceps, triceps, wrist flexion, wrist extension, hip flexors, pig farm manager, quadriceps, tibialis Anterior, toe extension (EHL), plantarflexion Detailed sensory examination: intact Posture: other (None) Reflex and gait examination: intact Reflexes: Biceps: 3+, Triceps: 3+, Brachioradialis: 3+, Patella: 3+, Achilles: 3+ Mental Status Examination: awake, alert, oriented to person, oriented to place, oriented to time, follows commands appropriately, answers questions appropriately, no agnosia, no aphasia, no aproxia Cranial nerve examination: PERRL, EOMI, visual lamas intact, corneal reflexes brisk symmetrically, sensory to face intact, mastication intact, no facial asymm etry is present, no dysarthria, hearing is intact symmetrically, soft palate elevates bilaterally upon phonation, gag reflex intact, flexes SCM and trapezius muscles symmetrically with full power, tongue protrudes midline, no atrophy or facial fasiculations present Results - Laboratory Findings CBC and BMP: 02/11/19 05:30 02/09/19 20:49 Abnormal lab findings: Abnormal lab results WBC 4.0 K/mcL (4.3-11.1) L 02/11/19 05:30 RBC 3.05 M/mcL (3.82-4.97) L 02/11/19 05:30 Hgb 10.4 g/dL (11.5-15.4) L 02/11/19 05:30 Hct 30.8 % (35.3-44.9) L 02/11/19 05:30 MCV 101.0 fL (83.0-100.0) H 02/11/19 05:30 MCH 34.1 pg (28.0-33.3) H 02/11/19 05:30 Sodium 133 mEq/L (136-145) L 02/09/19 20:49 Carbon Dioxide 22 mEq/L (23-29) L 02/09/19 20:49 BUN 7 mg/dL (8-23) L 02/09/19 20:49 Creatinine 0.54 mg/dL (0.60-1.20) L 02/09/19 20:49 Calculated Osmolality 273 (280-300) L 02/09/19 20:49 Calcium 8.0 mg/dL (8.6-10.3) L 02/09/19 20:49 Serum Total Protein 5.0 g/dL (6.4-8.9) L 02/09/19 20:49 Albumin 2.8 g/dL (3.5-5.7) L 02/09/19 20:49 Globulin 2.2 g/dL (2.4-3.5) L 02/09/19 20:49 - Diagnostic Findings Additional findings: MRI OF THE THORACIC SPINE WITHOUT CONTRAST 02/10/2019 7:43 pm TECHNIQUE: Multiplanar multisequence MRI of the thoracic spine was performed without the administration of intravenous contrast. COMPARISON: CT 1 day prior. HISTORY: ORDERING SYSTEM PROVIDED HISTORY: Assess acuity of the frx FINDINGS: BONES/ALIGNMENT: There is an acute T10 compression fracture with 10% anterior vertebral body height loss and marrow edema subjacent to the superior endplate. There is no posterior cortex retropulsion. Vertebral body heights are otherwise maintained. There is mild chronic T3 super endplate concavity without overall vertebral body height loss. Alignment is normal. SPINAL CORD: The visualized spinal cord has normal signal and morphology. No evidence of mass or abnormal fluid collection within the spinal canal. SOFT TISSUES: No acute paraspinal soft tissue abnormality is seen. Prominent bile ducts are likely physiologic following cholecystectomy. DEGENERATIVE CHANGES: Mild spinal canal stenosis at T7-8 and T8-9 secondary to posterior disc protrusions. MR/MR thoracic spine wo con IMPRESSION: 1. Acute T10 compression fracture with 10% anterior vertebral body height loss but no significant posterior cortex retropulsion. 2. Mild spinal canal stenosis at T7-8 and T8-9 secondary to posterior disc protrusions. D/ / Jacek Trimble / Jacek Trimble Interpreting Provider: Jacek Trimble OF THE CERVICAL SPINE WITHOUT CONTRAST 02/10/2019 7:42 pm TECHNIQUE: Multiplanar multisequence MRI of the cervical spine was performed without the administration of intravenous contrast. COMPARISON: CT earlier today. HISTORY: ORDERING SYSTEM PROVIDED HISTORY: assess the acuity of the C3 subtle compression frx Initial encounter. FINDINGS: BONES/ALIGNMENT: There is normal alignment of the spine. The vertebral body heights are maintained. The bone marrow signal appears unremarkable. SPINAL CORD: The visualized spinal cord has normal signal and morphology. No evidence of mass or abnormal fluid collection within the spinal canal. SOFT TISSUES: Paraspinal soft tissues are unremarkable. C2-C3: Disc height and signal maintained. No neural foraminal narrowing or spinal canal stenosis. C3-C4: Disc height and signal maintained. No neural foraminal narrowing or spinal canal stenosis. C4-C5: Disc height and signal maintained. No neural foraminal narrowing or spinal canal stenosis. C5-C6: Disc height and signal maintained. Mild left neural foraminal narrowing secondary facet hypertrophy. No right neural foraminal narrowing. Mild spinal canal stenosis secondary to a posterior disc protrusion. C6-C7: Disc height and signal maintained. Mild left neural foraminal narrowing secondary to uncovertebral hypertrophy. No right neural foraminal narrowing. Mild spinal canal stenosis secondary to disc bulge. C7-T1: Disc height and signal maintained. No neural foraminal narrowing or spinal canal stenosis. MR/MR cervical spine wo con IMPRESSION: 1. No acute abnormality of the cervical spine. 2. Mild spinal canal stenosis at C5-6 and C6-7. 3. Mild left C6 and C7 neural foraminal narrowing. D/ / Jacek Trimble / Jacek Trimble Interpreting Provider: Jacek Trimble Consult Discharge Plan - Plan Referrals: Emanuel Dietrich DO [Primary Care Provider] -
--- NOTE | 2019-02-11 11:17 | Discharge Summary ---
- NOTES TO OUTPATIENT PROVIDER Notes to Outpatient Provider: Pt in observation for acute Thoracic compression fracture. She was evaluated by pain management and will be discharged home for outpatient follow up. Her blood pressure was markedly elevated that she felt was due to pain. She has a BP cuff at home and will monitor for her PCP. Date of Encounter: 02/11/19 Time of Encounter: 11:15 - Discharge Diagnosis (1) Compression fracture of T10 vertebra Priority: Primary Status: Acute (2) Intractable back pain Priority: Secondary Status: Chronic (3) Chronic nausea Priority: Secondary Status: Acute (4) Falls Priority: Secondary Status: Chronic Qualifiers: Encounter type: subsequent encounter Qualified Code(s): W19.XXXD - Unspeci fied fall, subsequent encounter Hospital course: Ms. Vaughn is a 64 year old female presented to ED with acute back pain. Found to have compression fracture and placed in observation. Ms Vaughn was placed in observation. She had MRI and was seen by pain management. No intervention needed. She was evaluated by neuro and will follow up outpatient. She had back brace which helped pain. Her BP was markedly elevated but patient did not want treatment and felt it was due to pain. She will follow with PCP with record from home. Discharge discussed with: patient - Time Spent with Patient Total time spent providing and/or coordinating discharge services: 25min - Discharge Medications Prescriptions: New RX: OxyCODONE Immed Rel [Roxicodone 5 MG] 10 mg PO Q6HR PRN 5 Days #40 tablet PRN Reason: Severe Pain RX: Nicotine Patch [Nicoderm] 14 mg TD Q24H #0 patch.td24 Continue RX: Citalopram Hydrobromide [Citalopram HBr] 40 mg PO DAILY RX: Ergocalciferol (VITAMIN D2) [Vitamin D2] 50,000 unit PO MO RX: Esomeprazole Magnesium [Nexium] 40 mg PO DAILY RX: Folic Acid 1 mg PO DAILY RX: Ondansetron HCl 4 mg PO Q8H PRN PRN Reason: Nausea RX: Acetaminophen [Tylenol] 1,000 mg PO HS PRN PRN Reason: Pain RX: DiphenhydraMINE [Benadryl] 25 mg PO HS Home Medications: RX: Citalopram Hydrobromide [Citalopram HBr] 40 mg PO DAILY 12/27/18 [History] RX: Ergocalciferol (VITAMIN D2) [Vitamin D2] 50,000 unit PO MO 11/10/18 [History] RX: Esomeprazole Magnesium [Nexium] 40 mg PO DAILY 11/10/18 [History] RX: Folic Acid 1 mg PO DAILY 11/10/18 [History] RX: Ondansetron HCl 4 mg PO Q8H PRN 11/10/18 [History] RX: Acetaminophen [Tylenol] 1,000 mg PO HS PRN 02/10/19 [History] RX: DiphenhydraMINE [Benadryl] 25 mg PO HS 02/10/19 [History] RX: Nicotine Patch [Nicoderm] 14 mg TD Q24H #0 patch.td24 02/11/19 [Rx] RX: OxyCODONE Immed Rel [Roxicodone 5 MG] 10 mg PO Q6HR PRN 5 Days #40 tablet 02/11/19 [Rx] Allergies/Adverse Reactions: Allergy/AdvReac Type Severity Reaction Status Date / Time ibuprofen Allergy See Verified 02/11/19 12:32 Comments shellfish derived Allergy Rash Verified 02/11/19 12:32 Date of admission: 02/09/19 23:58 Primary care physician: Emanuel Dietrich Consults: 02/09/19 23:55 Consult to Physician [CONS] Stat Consulting Provider: Landen Miller Jr Reason for Consult: t10 compression fracture Call Completed: No 02/09/19 23:57 Consult to Orthopedic Surgery [CONS] Stat Consulting Provider: [facility] Reason for Consult: Consult to spine - t10 compression fx Call Completed: No 02/11/19 08:02 Consult to Neurology [CONS] Routine Consulting Provider: [facility] Reason for Consult: Gait instability Time Notified: 08:00 Call Completed: Yes Discharging clinician: Obed Green Anticipated date of discharge: 02/11/19 - Constitutional Vitals: Temp Pulse Resp BP Pulse Ox 98.4 F 85 18 154/104 95 02/11/19 06:45 02/11/19 06:45 02/11/19 06:45 02/11/19 06:45 02/11/19 07:19 General appearance: Present: A&O X 3 Exam: See below - Head Head exam: Present: normocephalic - Eye Eye exam: Present: EOMI, conjuntiva pink - ENT ENT exam: Present: mucous membranes moist - Respiratory Respiratory exam: Present: CTAB. Absent: rhonchi, wheezes - Cardiovascular Cardiovascular exam: Present: RRR. Absent: tachycardia - GI/Abdominal GI/Abdominal exam: Present: soft. Absent: tenderness - Extremities Exam Extremities exam: Present: warm. Absent: tenderness - Neurological Exam Neurological exam: Present: alert, oriented X3 - Skin Skin exam: Present: warm. Absent: rash - Patient Status Disposition: Home Health Service Condition: Good Functional capacity at discharge: uses cane/walker Overall status at discharge: patient is progressing back to baseline - Discharge Instructions Instructions: Oxycodone, Rapid Release (By mouth), Vertebral Compression Fracture (DC) Follow Up With: Emanuel Dietrich DO [Primary Care Provider] - (Please call PCP on Wednesday to chio e follow up appointment. ) Bladimir Aguirre DO [Partnered Physician] - (Please call wednesday to make an appointment for follow up care. ) - Diet and Activity Activity: increase activity as tolerated Diet: advance to your usual diet
--- NOTE | 2019-02-11 11:19 | Physician Discharge Referral ---
Home Health/Hosp Referral Info Transfer to: Home Health Provider in Charge Post Discharge: PCP - Diagnosis (1) Compression fracture of T10 vertebra Priority: Primary Status: Acute (2) Intractable back pain Priority: Secondary Status: Acute (3) Chronic nausea Priority: Secondary Status: Acute - Respiratory Orders None Smoking Cessation: Smoking cessation has been advised. For more information, call the [place] Tobacco Quit Line at 8-478-RRDD-NOW. - Diet/Nutrition Diet/Nutrition Orders: No Added Salt (MECCA) - Activity Activity Orders: Ambulate, Walker - Services Needed Following services are medically necessary services: Nursing, Home Health Aide, Physical Therapy, Occupational Therapy - Transfer Medications Prescriptions: OxyCODONE Immed Rel [Roxicodone 5 MG] 10 mg PO Q6HR PRN 5 Days #40 tablet PRN Reason: Severe Pain Home Medications: Lidocaine Patch [Lidoderm 5% patch] 1 each TP DAILY PRN #10 adh..patch 09/05/18 [Rx] Citalopram Hydrobromide [Citalopram HBr] 40 mg PO DAILY 11/10/18 [History] Ergocalciferol (VITAMIN D2) [Vitamin D2] 50,000 unit PO MO 11/10/18 [History] Esomeprazole Magnesium [Nexium] 40 mg PO DAILY 11/10/18 [History] Folic Acid 1 mg PO DAILY 11/10/18 [History] Ondansetron HCl 4 mg PO Q8H PRN 11/10/18 [History] Acetaminophen [Tylenol] 1,000 mg PO HS PRN 02/10/19 [History] DiphenhydraMINE [Benadryl] 25 mg PO HS 02/10/19 [History] Nicotine Patch [Nicoderm] 14 mg TD Q24H #0 patch.td24 02/11/19 [Rx] OxyCODONE Immed Rel [Roxicodone 5 MG] 10 mg PO Q6HR PRN 5 Days #40 tablet 02/11/19 [Rx] Allergies/Adverse Reactions: Allergy/AdvReac Type Severity Reaction Status Date / Time ibuprofen Allergy See Verified 11/10/18 08:26 Comments shellfish derived Allergy Rash Verified 11/10/18 08:26 Certification: Further, I certify that my clinical findings support that this patient is homebound (i.e. absences from home require considerable and taxing effort and are for medical reasons or scientology services or infrequently or short duration when for other reasons) because: Homebound Reason: Patient requires assistance of a person or device to safely leave home, Leaving home requires considerable and taxing effort due to condition Attestation: My signature below is to certify that this patient is under my care and that I, or nurse practitioner, or a physician's contract administrative assistant working with me, has a [id number] encounter with this patient.
[2019-02-11 11:41] VITALS: BP 123/81
== END 2019-02-11 13:29 | disposition home health service (06) ==
LOC: 3NENU 19:11 → EMEROOARM 19:11 → SUATTDRO 23:58 → 3NENU 02-10 00:40
PROVIDERS: ADMIT Internal Medicine; ATTEND Internal Medicine